=== PATIENT | female | born 1995 | race Caucasian/White ===

== ENCOUNTER → 2016-12-13 | Outpatient (CLI) | payer BC ==
--- NOTE | 2016-12-13 13:26 | KCIC ---
MR of the right shoulder Indication: Right shoulder pain. Injury in July. Technique: Standard multiplanar sequences are obtained. Findings: Acromioclavicular joint:Intact. Rotator cuff: Mild thickening and signal within the anterior supraspinatus tendon compatible with mild tendinosis. No rotator cuff tear. Trace subdeltoid bursal fluid. Glenohumeral cartilage: No acute defect or advanced DJD. Fluid: No significant joint effusion. Labrum: No evidence of labral tear or para labral cyst. Biceps tendon: Intact Bones: There is some marrow heterogeneity of the proximal humerus, may represent some marrow. No aggressive bone destruction or destructive bone lesion is identified. Soft tissue: No acute findings. Impression: 1. Mild rotator cuff tendinosis. Otherwise no internal derangement identified. 2. Mild marrow heterogeneity at the proximal humerus. I suspect this is due to some physiologic red marrow, rather than infiltrative pathology. If there is any clinical concern, consider a bone scan. Electronically signed by: Kane Diaz MD (12/13/2016 1:23 PM) [facility]
== END | disposition home or self-care (01) ==
LOC: KCIC MRI 11:45
PROVIDERS: ATTEND Physician Assistant
DX: M25.511 Pain in right shoulder (principal)
CPT/HCPCS: 73221